=== PATIENT | male | born 1990 | race American Indian/Alaskan Native ===

== ENCOUNTER 2021-05-10 09:05 | Emergency (ER) | payer SELFPAY | END 2021-05-10 11:09 | disposition home or self-care (01) | LOC: JD.ED 09:05 | DX: S06.0X0A Concussion without loss of consciousness, initial encounter (principal); S00.11XA Contusion of right eyelid and periocular area, initial encounter; R20.0 Anesthesia of skin; W22.09XA Striking against other stationary object, initial encounter; Y99.0 Civilian activity done for income or pay | CPT/HCPCS: 70450; 70450-26; 99283-25 ==